=== PATIENT | male | born 1950 | race African-American/Black ===

== ENCOUNTER 2019-12-07 15:11 | Emergency (ER) | payer OTHER, SELFPAY ==
--- NOTE | 2019-12-07 15:17 | W.ED.GENAD ---
Discharge Plan Disposition Patient Disposition: HOME Condition: Good Discharge Details Chief Complaint: GenMedical Clinical Impression: Exposure to 2019-nCoV Primary Care Provider: Ania High ED Provider: Lily Wesley Home Meds and New Rx's Prescriptions: Continued aspirin [Aspir-81] 81 MG tablet,delayed release (DR/EC) 81 mg PO DAILY RF: 0 lisinopril 5 MG tablet 5 mg PO DAILY RF: 0 hydrochlorothiazide 25 MG tablet 25 mg PO DAILY RF: 0 Discharge Instructions Additional Instructions: Encourage water intake. Please continue with your good safety practices regarding keeping yourself and others safe preventing spread of COVID. Outpatient order has been set up for COVID 19 testing to be completed at the testing 10 next Monday in the testing tent. If you develop shortness of breath, cough, fever, difficulty breathing or other new/worsening symptoms to seek care urgently once again. Stand Alone Forms: POSITIVE COVID-19/TO BE TESTED Referrals: Ania High [Primary Care Provider] - Discharge Data Discharge Date/Time-TO BE ENTERED AT DEPARTURE: 12/07/19 16:00 Medical Decision Making Patient is a alice 69-year-old gentleman presenting today with chief complaint of possible exposure to COVID-19. He reports that approximately 1.5 weeks ago he had seen a friend outside and remained 6 feet apart. Said friend was then later determined to be an asymptomatic carrier of COVID-19. Family then advised patient to seek care. He denies any symptoms. He has been afebrile, he denies shortness of breath, cough, change in bowel habits. Patient I discussed potential risk for massimo the illness and I find this very unlikely. However, out of an abundance of precaution, will order outpatient testing to be completed the COVID-19 tent. He was given return precautions. We discussed quarantining at this time. All of his questions or concerns were addressed and he is in agreement this plan. HPI General Mode of arrival: ambulatory. Date/Time Provider Initiated Documentation: 12/07/19 15:13. Limitations to Documentation: no limitations. Information obtained by: patient and RN notes reviewed. HPI Narrative: Patient alice 69-year-old male presents today with chief concern for COVID 19. He reports that he was outside with a friend approximately 1.5 weeks ago who later found out to be a asymptomatic carrier. He reports that there are at least 6 feet apart. Not share any food or drink, did not touch. He is concerned he may need to be screened. He denies shortness of breath, cough, fever, abdominal pain, diarrhea or any other illness symptoms. He is doing quite well at this time. Related Data Home Medications Medication Instructions Recorded Confirmed aspirin [Aspir-81] 81 mg PO DAILY 04/08/14 12/07/19 hydrochlorothiazide 25 mg PO DAILY 04/08/14 12/07/19 lisinopril 5 mg PO DAILY 04/08/14 12/07/19 Allergies Allergy/AdvReac Type Severity Reaction Status Date / Time No Known Allergies Allergy Unverified 12/07/19 15:22 Review of Systems Constitutional Constitutional: Reports as per HPI, Denies chills, Denies fever(s) and Denies headache(s) ENT Ears, Nose, Mouth, and Throat: Denies headache(s) Cardiovascular Cardiovascular: Reports as per HPI and Denies chest pain Respiratory Respiratory: Reports as per HPI, Denies chest congestion, Denies cough and Denies hemoptysis Gastrointestinal Gastrointestinal: Reports as per HPI, Denies abdominal pain and Denies change in stool character Musculoskeletal Musculoskeletal: Reports as per HPI Neurologic Neurologic: Reports as per HPI and Denies headache(s) [facility] Social History Smoking/Tobacco Use Status: Former Tobacco Use Alcohol Intake: current Alcohol Intake frequency: a few times a week Alcohol type: beer Drug use: Never Substance use type: does not use Do you feel safe at home: Yes Do you feel safe in your relationship?: Yes Exam Const General: cooperative, healthy appearing, comfortable, no acute distress, well developed and well groomed Nutritional Appearance: average body habitus and well nourished Orientation: alert and awake Resp Effort & Inspection: normal respiratory effort, able to speak in complete sentences and no respiratory distress Auscultation: clear to auscultation bilaterally Cardio Rate: regular rate Rhythm: regular rhythm Heart Sounds: S1 normal and S2 normal Skin General skin exam: no rashes or lesions noted Lesions: no lesions Rashes: no rashes Trauma: no lacerations or abrasions Neuro General: patient alert and patient awake Cognition: normal cognition Speech: speech normal Gait: normal gait Psych Appearance: grossly normal and well kempt Mental Status: mental status grossly normal Speech and Movement: speech and movement normal
[2019-12-07 15:19] VITALS: BP 151/83; PULSE 91; RESP 18; TEMP 36.7; O2SAT 96
--- NOTE | 2019-12-12 18:29 | NUR.NOTE ---
voice mail left for patient to return KATIE Tuttle call at [phone] so he may learn the results of his covid test Nursing Note:
== END 2019-12-07 16:00 | disposition home or self-care (01) ==
LOC: ER 16:04
PROVIDERS: Emergency Provider Physician Assistant; PCP Legal Medicine
DX: Z20.828 Contact with and (suspected) exposure to other viral communicable diseases
CPT/HCPCS: 99281; 99282

== ENCOUNTER 2019-12-10 09:34 | Outpatient (CLI) | payer OTHER, SELFPAY ==
[2019-12-11 23:42] LABS: COVID-19 RT-PCR Result NEGATIVE (Negative)
== END 2019-12-10 09:54 ==
PROVIDERS: PCP Legal Medicine; Visit Provider Physician Assistant
DX: Z11.59 Encounter for screening for other viral diseases (principal)
CPT/HCPCS: U0003

== ENCOUNTER → 2021-10-06 13:47 | Outpatient (BNVA) | payer MEDICARE, SELFPAY | PROVIDERS: PCP Legal Medicine; Referring Provider Legal Medicine; Visit Provider Nurse Practitioner Adult Health | DX: G56.01 Carpal tunnel syndrome, right upper limb (principal); I10 Essential (primary) hypertension | CPT/HCPCS: 95908; 99203; 99214 ==

== ENCOUNTER → 2024-02-01 10:42 | Outpatient (BNVA) | payer MEDICARE, SELFPAY | PROVIDERS: PCP Legal Medicine; Referring Provider Legal Medicine; Visit Provider Nurse Practitioner Adult Health | DX: G56.02 Carpal tunnel syndrome, left upper limb (principal) | CPT/HCPCS: 95908; 99214 ==